=== PATIENT | female | born 1955 | race Two or more races ===

== ENCOUNTER 2019-07-06 13:59 | Emergency (ER) | payer MEDICAID, OTHER ==
[~2019-07-06] VITALS: Ht 154.9 cm; Wt 102.5 kg
[2019-07-06 15:15] LABS: Basophils # (auto) 0 uL; Basophils % (auto) 0.6 % (0.0-2.0); Eosinophils # (auto) 0.1 uL; Eosinophils % (auto) 2.8 % (0.0-7.0); Hematocrit 38.7 % (36.0-46.0); Hemoglobin 12.6 g/dL (12.2-16.2); Lymphocytes % (auto) 19.1 % (10.0-50.0); Mean Corpuscular Hgb Conc. 32.7 g/dL (32.0-36.0); Mean Corpuscular Volume 88.8 fL (80.0-100.0); Monocytes # (auto) 0.4 uL; Neutrophils # (auto) 3.7 uL; Neutrophils % (auto) 70.5 % (37.0-80.0); Nucleated Red Blood Cells % 0.1 %; Platelet Count (auto) 246 10^3/uL (140-450); Red Blood Cells 4.36 10^6/uL (4.0-5.20); White Blood Cell 5.3 10^3/uL (4.4-10.8)
[2019-07-06 15:27] LABS: Albumin 3.2 g/dL (3.4-5.0); BUN/Creatinine Ratio 15.9; Calcium 8.6 mg/dL (8.5-10.1); Potassium 4.1 mmol/L (3.5-5.1)
[2019-07-06 15:29] LABS: Bilirubin, Total 0.3 mg/dL (0.2-1.0); Total Protein 7.5 g/dL (6.4-8.2)
[2019-07-06 16:50] LABS: Urine WBC None Seen /hpf (0 - 5)
[2019-07-06 17:07] LABS: Urine Bacteria NONE SEEN /hpf (None Seen); Urine Blood Negative /uL (Negative); Urine Mucus FEW (None Seen); Urine Specific Gravity 1.013 (1.001-1.035)
[2019-07-06] MEDS ORDERED: SODIUM CHLORIDE 0.9% 1,000 ML IVB ONE (18:03)
[2019-07-06] MEDS ORDERED: MORPHINE SULF INJ 2 MG/ML SYRINGE 1ML IV ONE (18:15)
[2019-07-06] MEDS ORDERED: SODIUM CHLORIDE 0.9% 1,000 ML IV ONE (18:15)
[2019-07-06] MEDS ORDERED: ONDANSETRON HCL 4 MG/2 ML VIAL IV ONE (18:15)
[2019-07-06 20:19] LABS: Amylase 62 U/L (25-115); Lipase 72 U/L (73-393)
[2019-07-06 21:00] VITALS: BP 137/84
== END 2019-07-06 21:15 | disposition home or self-care (01) ==
LOC: ER 14:02
DX: K80.20 Calculus of gallbladder without cholecystitis without obstruction (principal); Z52.4 Kidney donor; R35.0 Frequency of micturition; R39.15 Urgency of urination; Z90.49 Acquired absence of other specified parts of digestive tract; Z90.710 Acquired absence of both cervix and uterus
CPT/HCPCS: 36415; 71045; 74176; 80053; 81001; 82150; 83690; 85025; 93005; 94761; 96374; 96375; 99284; J2270; J2405; J7030

== ENCOUNTER 2020-02-07 11:05 | Emergency (ER) | payer MEDICAID ==
[~2020-02-07] VITALS: Ht 154.9 cm; Wt 103.0 kg
[2020-02-07 11:08] VITALS: BP 155/68
[2020-02-07] MEDS ORDERED: KETOROLAC TROMETH 60MG/2ML VIAL IM ONE (11:45)
== END 2020-02-07 12:02 | disposition home or self-care (01) ==
LOC: ER 11:05
DX: S76.911A Strain of unspecified muscles, fascia and tendons at thigh level, right thigh, initial encounter (principal); S83.92XA Sprain of unspecified site of left knee, initial encounter; W01.0XXA Fall on same level from slipping, tripping and stumbling without subsequent striking against object, initial encounter; Y93.89 Activity, other specified; Y92.89 Other specified places as the place of occurrence of the external cause; Y99.8 Other external cause status
CPT/HCPCS: 73562; 96372; 99283; J1885

== ENCOUNTER 2020-07-06 18:25 | Emergency (ER) | payer MEDICAID ==
[~2020-07-06] VITALS: Ht 154.9 cm; Wt 106.6 kg
[2020-07-06 23:06] VITALS: BP 142/67
== END 2020-07-07 02:00 | disposition home or self-care (01) ==
LOC: ER 18:26
DX: H11.32 Conjunctival hemorrhage, left eye (principal)

== ENCOUNTER 2020-11-19 20:01 | Emergency (ER) | payer MEDICAID ==
[~2020-11-19] VITALS: Ht 152.4 cm; Wt 106.1 kg
[2020-11-20] MEDS: HYDROcodone-ACET 10/325MG TAB PO ONE (00:18)
[2020-11-20] MEDS: ONDANSETRON ODT 4 MG TAB PO ONE (00:18)
[2020-11-20 01:44] VITALS: BP 123/67
== END 2020-11-20 02:06 | disposition home or self-care (01) ==
LOC: ER 20:03
DX: S46.912A Strain of unspecified muscle, fascia and tendon at shoulder and upper arm level, left arm, initial encounter (principal); W18.09XA Striking against other object with subsequent fall, initial encounter; Y93.01 Activity, walking, marching and hiking; Y92.89 Other specified places as the place of occurrence of the external cause; Y99.8 Other external cause status
CPT/HCPCS: 73030; 73200; 99284; Q0162

== ENCOUNTER 2021-03-13 10:13 | Emergency (ER) | payer MEDICAID ==
[~2021-03-13] VITALS: Ht 152.4 cm; Wt 108.9 kg
[2021-03-13] MEDS ORDERED: SODIUM CHLORIDE 0.9% 500 ML IVB ONE (10:30)
[2021-03-13] MEDS ORDERED: MORPHINE SULFATE 4 MG/ML SYR/VIAL IV ONE (10:30)
[2021-03-13] MEDS ORDERED: ONDANSETRON HCL 4 MG/2 ML VIAL IV ONE (10:30)
[2021-03-13 10:39] LABS: Basophils # (auto) 0 10 ^3/uL (0-0.2); Basophils % (auto) 0.8 % (0.0-2.0); Eosinophils # (auto) 0.2 10 ^3/uL (0-0.8); Eosinophils % (auto) 5.9 % (0.0-7.0); Hematocrit 38.2 % (36.0-46.0); Lymphocytes % (auto) 25.8 % (10.0-50.0); Mean Corpuscular Hgb Conc. 34.1 g/dL (32.0-36.0); Monocytes # (auto) 0.4 10 ^3/uL (0-1.3); Monocytes % (auto) 10.1 % (0.0-12.0); Neutrophils # (auto) 2.2 10 ^3/uL (1.6-8.6); Neutrophils % (auto) 57.4 % (37.0-80.0); Nucleated Red Blood Cells % 0.1 %; Red Blood Cells 4.34 10^6/uL (4.0-5.20); Red Cell Distribution Width 13.5 % (11.8-14.3); White Blood Cell 3.8 10^3/uL (4.4-10.8)
[2021-03-13 10:50] LABS: Albumin 3.4 g/dL (3.4-5.0); Anion Gap 7 (5-15); Blood Urea Nitrogen 14 mg/dL (7-18); Calcium 8.9 mg/dL (8.5-10.1); Carbon Dioxide 26 mmol/L (21-32); Chloride 107 mmol/L (98-107); Glucose 89 mg/dL (74-106); Magnesium 2.1 mg/dL (1.6-2.6); Potassium 4.1 mmol/L (3.5-5.1); Sodium 140 mmol/L (136-145)
[2021-03-13 10:56] LABS: Alanine Aminotransferase 25 U/L (13-56); Alkaline Phosphatase 112 U/L (45-117); Aspartate Aminotransferase 26 U/L (15-37); BUN/Creatinine Ratio 16.1; Bilirubin, Total 0.4 mg/dL (0.2-1.0); GFR African American 85 mL/min; GFR Non-African American 70 mL/min; Total Protein 7.5 g/dL (6.4-8.2)
[2021-03-13 14:34] VITALS: BP 121/65
[2021-03-13 15:43] LABS: Urine Bacteria FEW /hpf (None Seen); Urine Blood Negative /uL (Negative); Urine Mucus FEW (None Seen); Urine Specific Gravity 1.027 (1.001-1.035); Urine WBC 2 /hpf (0 - 5)
== END 2021-03-13 15:25 | disposition home or self-care (01) ==
LOC: ER 10:13
DX: R10.31 Right lower quadrant pain (principal); R11.0 Nausea; Z90.49 Acquired absence of other specified parts of digestive tract; Z90.710 Acquired absence of both cervix and uterus
CPT/HCPCS: 36415; 74176; 80053; 81001; 83690; 83735; 84484; 85025; 85049; 93005; 96361; 96374; 96375; 99285; J2270; J2405; J7030

== ENCOUNTER 2021-12-05 13:16 | Emergency (ER) | payer MEDICAID ==
[~2021-12-05] VITALS: Ht 154.9 cm; Wt 109.8 kg
[2021-12-05 17:17] VITALS: BP 148/70
== END 2021-12-05 17:23 | disposition home or self-care (01) ==
LOC: ER 13:16
DX: S00.83XA Contusion of other part of head, initial encounter (principal); S00.31XA Abrasion of nose, initial encounter; W18.09XA Striking against other object with subsequent fall, initial encounter; Y93.89 Activity, other specified; Y92.098 Other place in other non-institutional residence as the place of occurrence of the external cause; Y99.8 Other external cause status
CPT/HCPCS: 70450; 72125

== ENCOUNTER 2022-03-06 09:51 | Emergency (ER) | payer MEDICAID ==
[~2022-03-06] VITALS: Ht 154.9 cm; Wt 109.8 kg
[2022-03-06] MEDS ORDERED: HYDROcodone-ACET 5/325MG TAB PO ONE (11:15)
[2022-03-06 11:18] VITALS: BP 157/73
== END 2022-03-06 11:40 | disposition home or self-care (01) ==
LOC: ER 09:51
DX: S63.91XA Sprain of unspecified part of right wrist and hand, initial encounter (principal); S43.401A Unspecified sprain of right shoulder joint, initial encounter; M19.011 Primary osteoarthritis, right shoulder; I10 Essential (primary) hypertension; Z90.49 Acquired absence of other specified parts of digestive tract; Z90.710 Acquired absence of both cervix and uterus; W01.0XXA Fall on same level from slipping, tripping and stumbling without subsequent striking against object, initial encounter; Y93.89 Activity, other specified; Y92.89 Other specified places as the place of occurrence of the external cause; Y99.8 Other external cause status
CPT/HCPCS: 73030; 73130

== ENCOUNTER 2022-04-10 13:38 | Emergency (ER) | payer MEDICAID ==
[~2022-04-10] VITALS: Ht 154.9 cm; Wt 109.7 kg
[2022-04-10] MEDS ORDERED: CEPH-509 PO (14:58)
[2022-04-10 15:06] VITALS: BP 127/59
== END 2022-04-10 15:15 | disposition home or self-care (01) ==
LOC: ER 13:38
DX: S80.821A Blister (nonthermal), right lower leg, initial encounter (principal); E66.01 Morbid (severe) obesity due to excess calories; I10 Essential (primary) hypertension; Z90.710 Acquired absence of both cervix and uterus; Z68.42 Body mass index [BMI] 45.0-49.9, adult

== ENCOUNTER 2022-06-10 13:47 | Emergency (ER) | payer MEDICAID ==
[~2022-06-10] VITALS: Ht 157.5 cm; Wt 106.0 kg
[~2022-06-10 13:47] MED LIST: CEPH-509 PO
[2022-06-10 14:46] VITALS: BP 129/78
[2022-06-10] MEDS ORDERED: AMOX-277 PO (15:59)
== END 2022-06-10 16:08 | disposition home or self-care (01) ==
LOC: ER 13:47
DX: S51.812A Laceration without foreign body of left forearm, initial encounter (principal); S51.852A Open bite of left forearm, initial encounter; I10 Essential (primary) hypertension; Z90.49 Acquired absence of other specified parts of digestive tract; Z90.710 Acquired absence of both cervix and uterus; Z79.2 Long term (current) use of antibiotics; Z79.899 Other long term (current) drug therapy; W55.41XA Bitten by pig, initial encounter; Y93.89 Activity, other specified; Y92.89 Other specified places as the place of occurrence of the external cause; Y99.8 Other external cause status
CPT/HCPCS: 12001; 99283; J2001